=== PATIENT | male | born 1970 | race American Indian/Alaskan Native ===

== ENCOUNTER 2019-01-15 12:11 | Emergency (ER) | payer SELFPAY ==
--- NOTE | 2019-01-15 12:25 | Emergency Department Report ---
Chief Complaint: Nausea/Vomiting/Diarrhea Stated Complaint: STOMACH PAIN/VOMIT Time Seen by Provider: 01/15/19 12:20 - HPI History of Present Illness: Pt presents with left upper abd pain 3-4 days N/V able to tolerate water no fever no diarrhea had a BM last night hx of RA, gastritis, EGD/Colonoscopy a couple of months ago + smoker + marijuana MSE screening note: Focused history and physical exam performed. Due to findings the following was ordered: UA, CBC, CMP, lipase ED Disposition for MSE Condition: Stable
[2019-01-15] MEDS ORDERED: ZOFRAN ODT PO ONE (12:26)
[2019-01-15] MEDS ORDERED: ZOFRAN IV ONE (12:44)
[2019-01-15] MEDS ORDERED: NACL 0.9% 1000 ML 1,000 ML IV ONE ×2 (12:44→14:23)
[2019-01-15] MEDS ORDERED: BENTYL IM ONE (12:44)
[2019-01-15] MEDS ORDERED: PEPCID IV ONE (12:44)
[2019-01-15] MEDS ORDERED: GEODON IM ONE (12:45)
[2019-01-15 12:54] LABS: Basophils # (Auto) 0.1 K/mm3 (0.0-0.1); Basophils % (Auto) 0.9 % (0.0-1.8); Eosinophils % (Auto) 0.1 % (0.0-4.3); Hematocrit 41.2 % (35.5-45.6); Hemoglobin 13.8 gm/dl (11.8-15.2); Lymphocytes # (Auto) 1.2 K/mm3 (1.2-5.4); Lymphocytes % (Auto) 13.5 % (13.4-35.0); Mean Corpuscular HGB Conc 33 % (32-34); Mean Corpuscular Volume 90 fl (84-94); Monocytes # (Auto) 0.3 K/mm3 (0.0-0.8); Monocytes % (Auto) 3.8 % (0.0-7.3); Platelet Count 323 K/mm3 (140-440)
[2019-01-15 13:21] LABS: Alanine Aminotransferase 8 units/L (7-56); BUN/Creatinine Ratio 36; Blood Urea Nitrogen 25 mg/dL (9-20); Calcium 9.9 mg/dL (8.4-10.2); Hemolysis Index 11
[2019-01-15] MEDS ORDERED: WATER FOR INJ (PF) ONE (13:22)
[2019-01-15] MEDS ORDERED: WATER FOR INJ (PF) IV ONE (13:23)
[2019-01-15] MEDS ORDERED: WATER FOR INJ (PF) IM ONE (13:36)
--- NOTE | 2019-01-15 15:25 | Emergency Department Report ---
Vomiting/Diarrhea - HPI Chief Complaint: Nausea/Vomiting/Diarrhea Stated Complaint: STOMACH PAIN/VOMIT Time Seen by Provider: 01/15/19 12:20 Duration: 3 Days Severity: moderate Nausea/Vomiting Severity: Moderate Diarrhea Severity: None Pain Location: Epigastric Pain Severity: Moderate Symptoms: No Watery Diarrhea, No Bloody diarrhea, No Fever, No Able to Tolerate Fluids, No Recent Unusual Foods, No Recent Untreated Water Other History: Patient has a history of gastroparesis and states that his symptoms are similar to previous episodes ED Review of Systems ROS: Stated complaint: STOMACH PAIN/VOMIT Other details as noted in HPI Comment: All other systems reviewed and negative ED Past Medical Hx - Past Medical History Previous Medical History?: Yes Hx Arthritis: Yes - Surgical History Past Surgical History?: No - Social History Smoking Status: Current Every Day Smoker Substance Use Type: Marijuana - Medications Home Medications: Home Medications Medication Instructions Recorded Confirmed Last Taken Type Dicyclomine [Bentyl] 20 mg PO QID #12 tablet 01/15/19 Unknown Rx Ondansetron [Zofran Odt] 4 mg PO Q8HR PRN #10 tab.rapdis 01/15/19 Unknown Rx Vomiting Diarrhea Exam - Exam General: Vital signs noted. No distress. Alert and acting appropriately. HEENT: Yes Moist Mucous Membranes, No Pharyngeal Erythema, No Pharyngeal Exudates, No Rhinorrhea, No Conjuctival Injection, No Frontal Tenderness, No Maxillary Tenderness Neck: No Adenopathy, No Rigidity Lungs: Yes Clear Lung Sounds, Yes Good Air Exchange, No Wheezes, No Stridor, No Cough, No Nasal Flaring, No Retractions, No Use of Accessory Muscles Heart exam: Regular: Yes, Murmur: No, Tachycardia: No Abdomen: Tenderness: No, Peritoneal Signs: No, Distention: No, Hyperactive Bowel sounds: No Skin exam: Rash: No, Edema: No, Normal turgor: Yes Neurologic: Alert and oriented, no deficits. Musculoskeletal: Unremarkable. ED Course Vital Signs 01/15/19 12:22 Temperature 97.5 F L Pulse Rate 60 Respiratory 20 Rate Blood Pressure 133/94 O2 Sat by Pulse 100 Oximetry ED Medical Decision Making - Lab Data Result diagrams: 01/15/19 12:46 01/15/19 12:46 - Medical Decision Making Patient was given multiple medications for nausea and IV fluids. Patient's symptoms have improved. Critical care attestation.: If time is entered above; I have spent that time in minutes in the direct care of this critically ill patient, excluding procedure time. ED Disposition Clinical Impression: Gastroparesis Disposition: DC-01 TO HOME OR SELFCARE Is pt being admited?: No Does the pt Need Aspirin: No Condition: Stable Referrals: JOHN VERMA MD [Staff Physician] - 3-5 Days Time of Disposition: 15:25
[2019-01-15 15:43] VITALS: BP 142/93
== END 2019-01-15 15:52 | disposition home or self-care (01) ==
LOC: ED 12:11
DX: K31.84 Gastroparesis (principal); M19.90 Unspecified osteoarthritis, unspecified site; F17.200 Nicotine dependence, unspecified, uncomplicated; F12.10 Cannabis abuse, uncomplicated
CPT/HCPCS: 36415; 80053; 83690; 85025; 96361; 96372; 96374; 96375; 99283; J0500; J2405; J3486; J7030

== ENCOUNTER 2022-04-08 14:08 | Inpatient (IN) | payer MEDICAID ==
[2022-04-08] MEDS ORDERED: MORPHINE 4 MG/1 ML INJ IV ONE (14:19)
[2022-04-08] MEDS ORDERED: SODIUM CHLORIDE 0.9% 1000 ML 1,000 ML IV ONE ×2 (14:19→17:03)
[2022-04-08] MEDS ORDERED: ONDANSETRON 4 MG/2 ML INJ IV ONE (14:19)
[2022-04-08] MEDS ORDERED: PANTOPRAZOLE 40 MG INJ IV ONE (14:19)
[2022-04-08] MEDS ORDERED: METOCLOPRAMIDE 10 MG/2 ML INJ IV ONE (14:19)
[2022-04-08] MEDS ORDERED: diphenhydrAMINE 50 MG/ML VIAL IV ONE (14:20)
--- NOTE | 2022-04-08 14:24 | Emergency Department Report ---
ED Abdominal Pain HPI - General Chief Complaint: Abdominal Pain Stated Complaint: VOMITING Time Seen by Provider: 04/08/22 14:13 Source: patient, EMS Mode of arrival: Stretcher Limitations: No Limitations - History of Present Illness Initial Comments: Patient is 52 years old male with history of gastroparesis. Patient presented to the ER complaining of diffuse abdominal pain associated with nausea and vomiting for the last few days getting worse today. Patient denied any fever or chills. No chest pain or shortness of breath. MD Complaint: abdominal pain -: days(s) Location: diffuse Radiation: none Associated Symptoms: nausea, vomiting - Related Data Previous Rx's Medication Instructions Recorded Last Taken Type Dicyclomine [Bentyl] 20 mg PO QID #12 tablet 01/15/19 Unknown Rx Ondansetron [Zofran Odt] 4 mg PO Q8HR PRN #10 tab.rapdis 01/15/19 Unknown Rx Allergies Allergy/AdvReac Type Severity Reaction Status Date / Time No Known Allergies Allergy Verified 04/08/22 14:12 ED Review of Systems ROS: Stated complaint: VOMITING Other details as noted in HPI Comment: All other systems reviewed and negative Constitutional: denies: chills, fever Respiratory: denies: cough, shortness of breath, SOB with exertion, SOB at rest Cardiovascular: denies: chest pain, palpitations Gastrointestinal: abdominal pain, nausea, vomiting. denies: diarrhea, constipation, hematemesis, melena, hematochezia Musculoskeletal: denies: back pain Neurological: denies: headache, weakness, numbness, paresthesias, confusion Psychiatric: denies: depression, auditory hallucinations, visual hallucinations, homicidal thoughts, suicidal thoughts ED Past Medical Hx - Past Medical History Hx Arthritis: Yes - Social History Smoking Status: Current Every Day Smoker Substance Use Type: Marijuana - Medications Home Medications: Home Medications Medication Instructions Recorded Confirmed Last Taken Type Dicyclomine [Bentyl] 20 mg PO QID #12 tablet 01/15/19 Unknown Rx Ondansetron [Zofran Odt] 4 mg PO Q8HR PRN #10 tab.rapdis 01/15/19 Unknown Rx ED Physical Exam - General Limitations: No Limitations General appearance: alert, in no apparent distress - Head Head exam: Present: atraumatic, normocephalic, normal inspection - Eye Eye exam: Present: normal appearance - ENT ENT exam: Present: mucous membranes dry - Neck Neck exam: Present: normal inspection, full ROM. Absent: tenderness, meningismus - Respiratory Respiratory exam: Present: normal lung sounds bilaterally - Cardiovascular Cardiovascular Exam: Present: bradycardia - GI/Abdominal GI/Abdominal exam: Present: soft, tenderness, rebound, normal bowel sounds. Absent: distended, guarding, rigid, organomegaly, mass, bruit, pulsatile mass, hernia - Extremities Exam Extremities exam: Present: normal inspection, full ROM, normal capillary refill. Absent: tenderness - Back Exam Back exam: Present: normal inspection, full ROM. Absent: CVA tenderness (R), CVA tenderness (L) - Neurological Exam Neurological exam: Present: alert, oriented X3, CN II-XII intact, normal gait, reflexes normal. Absent: motor sensory deficit - Psychiatric Psychiatric exam: Absent: homicidal ideation, suicidal ideation - Skin Skin exam: Present: warm, intact, normal color ED Course Vital Signs 04/08/22 14:09 Temperature 97.8 F Pulse Rate 48 L Respiratory 20 Rate Blood Pressure 164/98 [Left] O2 Sat by Pulse 99 Oximetry ED Medical Decision Making - Lab Data Result diagrams: 04/08/22 14:46 04/08/22 14:46 - Radiology Data Radiology results: report reviewed - Medical Decision Making Patient is 52 years old male with history of gastroparesis. Patient presented to the ER complaining of diffuse abdominal pain associated with nausea and vomiting for the last few days getting worse today. Patient denied any fever or chills. No chest pain or shortness of breath. Patient received normal saline, Reglan, Zofran and Benadryl. Patient stated that her symptom is better no more vomiting. Labs reviewed and is unremarkable. CT abdomen and pelvis with IV contrast showed acute appendicitis. I discussed the patient with Dr. Travis, surgeon on-call he advised admit the patient to the hospital and he will see the patient. I discussed the patient with Dr. Grullon, he agreed to admit the patient to the hospital for further management. Critical care attestation.: If time is entered above; I have spent that time in minutes in the direct care of this critically ill patient, excluding procedure time. ED Disposition Clinical Impression: Acute appendicitis, Acute nausea with nonbilious vomiting Disposition: ADMITTED INPATIENT Is pt being admited?: Yes Condition: Stable
[2022-04-08 15:10] LABS: Basophils % (Auto) 0.6 % (0.0-1.8); Eosinophils % (Auto) 0.3 % (0.0-4.3); Hematocrit 40.7 % (35.5-45.6); Hemoglobin 13.7 gm/dl (11.8-15.2); Lymphocytes # (Auto) 1.1 K/mm3 (1.2-5.4); Lymphocytes % (Auto) 14.6 % (13.4-35.0); Mean Corpuscular HGB Conc 34 % (32-34); Mean Corpuscular Volume 91 fl (84-94); Monocytes # (Auto) 0.3 K/mm3 (0.0-0.8); Monocytes % (Auto) 3.8 % (0.0-7.3); Platelet Count 206 K/mm3 (140-440); Red Blood Count 4.48 M/mm3 (3.65-5.03); Red Cell Distribution Width 13.9 % (13.2-15.2)
[2022-04-08 15:38] LABS: Alanine Aminotransferase 10 units/L (7-56); Albumin 3.9 g/dL (3.9-5); BUN/Creatinine Ratio 27; Blood Urea Nitrogen 27 mg/dL (9-20); Calcium 9.3 mg/dL (8.4-10.2); Hemolysis Index 7
[2022-04-08 16:01] LABS: Bilirubin,Direct < 0.2 mg/dL (0-0.2)
--- NOTE | 2022-04-08 16:48 | Cat Scan Report ---
CT ABDOMEN AND PELVIS WITH CONTRAST HISTORY: abdominal pain. COMPARISON: None. TECHNIQUE: CT images of the abdomen and pelvis were obtained following administration of intravenous contrast. All CT scans at this location are performed using CT dose reduction for ALARA by means of automated exposure control. CONTRAST: 100 ml of intravenous contrast administered. FINDINGS: Lungs/bones: Moderate emphysema with small partially loculated pleural effusion on the left. Degener ative changes in the spine and pelvis with nothing acute. Abdomen/pelvis: There is hepatic steatosis. Liver is otherwise unremarkable. The spleen, pancreas, a drenals, and proximal GI tract appear unremarkable. There is a 1 mm nonobstructive calyceal stone in the lower pole of the right kidney. Tiny simple cysts in the left kidney. Urinary bladder is unremarkable. Prostate is mildly enlarged and indents the bladder base. No pelvic free fluid. There is colonic diverticulosis with no gross acute inflammatory change identified. There is a dilated fluid-filled tubular structure in the right lower quadrant measuring 15 mm in maximal d imension felt to represent the appendix. IMPRESSION: 1. Right lower quadrant findings as above suggesting acute appendicitis. 2. Additional incidental findings as above. Signer Name: Conrado Grover MD Signed: 04/08/2022 4:43 PM Workstation Name: [id number]
[2022-04-08] MEDS ORDERED: PIPERACILLIN/TAZOBACTAM 3.375 3.375 GM/50 ML BAG IV ONE (17:03)
--- NOTE | 2022-04-08 20:31 | Consultation ---
History of Present Illness Consult date: 04/08/22 Reason for consult: abdominal pain - History of present illness History of present illness: 52 yo male with 2 day h/o RLQ pain, nausea & vomiting. Past History Past Medical History: No medical history Medications and Allergies Allergies Allergy/AdvReac Type Severity Reaction Status Date / Time No Known Allergies Allergy Verified 04/08/22 14:12 Home Medications Medication Instructions Recorded Confirmed Last Taken Type Dicyclomine [Bentyl] 20 mg PO QID #12 tablet 01/15/19 04/09/22 Unknown Rx Ondansetron [Zofran Odt] 4 mg PO Q8HR PRN #10 tab.rapdis 01/15/19 04/09/22 Unknown Rx Review of Systems All systems: negative (none) Exam Vital Signs Temp Pulse Resp BP Pulse Ox 97.8 F 48 L 20 164/98 99 04/08/22 14:09 04/08/22 14:09 04/08/22 14:09 04/08/22 14:09 04/08/22 14:09 - General physical appearance Positive: well developed, well nourished, no distress - Eyes Positive: PERRL, normal occular movement - ENT Positive: normal pinna, normal nares, normal mucosa, no hearing loss, no congestion - Neck Positive: no masses, no bruits, trachea midline, no venous distension - Respiratory Positive: normal expansion, normal respiratory effort, clear to auscultation - Cardiovascular Rhythm: regular Heart Sounds: Present: S1 & S2. Absent: rub, click - Extremities Extremities: no ischemia, pulses symmetrical, No edema - Breasts Breasts: normal, no mass, no skin changes - Abdomen Abdomen: Present: soft, tender (Mildly TTP in the RLQ.), bowel sounds normal. Absent: distended, rebound, guarding, rigid Hernia: none - Genitourinary Male Genitourinary: normal Female Genitourinary: normal - Integumentary no rash, no growths, no abnormal pigmentation - Neurologic Neurologic: alert and oriented to time, place and person, motor strength and sensation are grossly intact - Musculoskeletal normal gait, normal posture - Psychiatric Psychiatric: appropriate mood/affect, intact judgment & insight Results - Labs 04/09/22 04:50 04/09/22 04:50 Abnormal lab results 04/08/22 04/08/22 Range/Units 14:46 14:46 Lymph # (Auto) 1.1 L (1.2-5.4) K/mm3 Seg Neutrophils % 80.7 H (40.0-70.0) % BUN 27 H (9-20) mg/dL Total Protein 8.3 H (6.3-8.2) g/dL Diabetes panel 04/08/22 Range/Units 14:46 Sodium 139 (137-145) mmol/L Potassium 3.9 (3.6-5.0) mmol/L Chloride 98.8 (98-107) mmol/L Carbon Dioxide 28 (22-30) mmol/L BUN 27 H (9-20) mg/dL Creatinine 1.0 (0.8-1.3) mg/dL Glucose 83 (75-100) mg/dL Calcium 9.3 (8.4-10.2) mg/dL AST 15 (5-40) units/L ALT 10 (7-56) units/L Alkaline Phosphatase 76 (35-129) units/L Total Protein 8.3 H (6.3-8.2) g/dL Albumin 3.9 (3.9-5) g/dL Calcium panel 04/08/22 Range/Units 14:46 Calcium 9.3 (8.4-10.2) mg/dL Albumin 3.9 (3.9-5) g/dL Pituitary panel 04/08/22 Range/Units 14:46 Sodium 139 (137-145) mmol/L Potassium 3.9 (3.6-5.0) mmol/L Chloride 98.8 (98-107) mmol/L Carbon Dioxide 28 (22-30) mmol/L BUN 27 H (9-20) mg/dL Creatinine 1.0 (0.8-1.3) mg/dL Glucose 83 (75-100) mg/dL Calcium 9.3 (8.4-10.2) mg/dL Adrenal panel 04/08/22 Range/Units 14:46 Sodium 139 (137-145) mmol/L Potassium 3.9 (3.6-5.0) mmol/L Chloride 98.8 (98-107) mmol/L Carbon Dioxide 28 (22-30) mmol/L BUN 27 H (9-20) mg/dL Creatinine 1.0 (0.8-1.3) mg/dL Glucose 83 (75-100) mg/dL Calcium 9.3 (8.4-10.2) mg/dL Total Bilirubin 0.20 (0.1-1.2) mg/dL AST 15 (5-40) units/L ALT 10 (7-56) units/L Alkaline Phosphatase 76 (35-129) units/L Total Protein 8.3 H (6.3-8.2) g/dL Albumin 3.9 (3.9-5) g/dL - Imaging CT scan - abdomen: report reviewed CT scan - pelvis: report reviewed Assessment and Plan - Patient Problems (1) Acute appendicitis Current Visit: Yes Status: Acute Plan to address problem: 1) IV Zosyn 2) NPO 3) Lap appy tomorrow
[2022-04-08] MEDS ORDERED: PIPERACILLIN/TAZOBACTAM 3.375 3.375 GM/50 ML BAG IV SCH (21:00)
[2022-04-08] MEDS ORDERED: METOCLOPRAMIDE 10 MG/2 ML INJ IV PRN (21:47)
[2022-04-08] MEDS ORDERED: ACETAMINOPHEN 325 MG TAB PO PRN (21:47)
[2022-04-08] MEDS ORDERED: HYDROmorphone 0.5 MG/0.5 ML INJ IV PRN (21:47)
[2022-04-08] MEDS ORDERED: MORPHINE 2 MG/1 ML INJ IV PRN (21:47)
[2022-04-08] MEDS ORDERED: ONDANSETRON 4 MG/2 ML INJ IV PRN (21:47)
--- NOTE | 2022-04-08 21:51 | History and Physical Report ---
History of Present Illness Date of examination: 04/08/22 Date of admission: 04/08/2022 Chief complaint: Right lower quadrant pain for 2 days History of present illness: 52-year-old male with no significant past medical history comes in for right lower quadrant pain 2 days duration associated with nausea and vomiting. No fever or chills. Vomited about 3-4 times every day. Pain is about 8 on a scale of 1-10. No exacerbating factors or relieving - Past Medical History --Arthritis: Yes - Social History --Smoking Status: Current Every Day Smoker --Substance Use Type: Marijuana - Medications --Home Medications: Home Medications Medication Instructions Recorded Confirmed Last Taken Type Dicyclomine [Bentyl] 20 mg PO QID #12 tablet 01/15/19 Unknown Rx Ondansetron [Zofran Odt] 4 mg PO Q8HR PRN #10 tab.rapdis 01/15/19 Unknown Rx Review of Systems ROS: Stated complaint: VOMITING Other details as noted in HPI Comment: All other systems reviewed and negative Constitutional: denies: chills, fever Respiratory: denies: cough, shortness of breath, SOB with exertion, SOB at rest Cardiovascular: denies: chest pain, palpitations Gastrointestinal: abdominal pain, nausea, vomiting. denies: diarrhea, constipation, hematemesis, melena, hematochezia Musculoskeletal: denies: back pain Neurological: denies: headache, weakness, numbness, paresthesias, confusion Psychiatric: denies: depression, auditory hallucinations, visual hallucinations, homicidal thoughts, suicidal thoughts Medications and Allergies Allergies Allergy/AdvReac Type Severity Reaction Status Date / Time No Known Allergies Allergy Verified 04/08/22 14:12 Home Medications Medication Instructions Recorded Confirmed Last Taken Type Dicyclomine [Bentyl] 20 mg PO QID #12 tablet 01/15/19 04/09/22 Unknown Rx Ondansetron [Zofran Odt] 4 mg PO Q8HR PRN #10 tab.rapdis 01/15/19 04/09/22 Unknown Rx Active Meds: Active Medications Piperacillin Sod/Tazobactam Sod (Zosyn/Ns 3.375gm/50ml) 3.375 gm in 50 mls @ 100 mls/hr IV Q8H OMA; Protocol Exam - Constitutional Vitals: Temp Pulse Resp BP Pulse Ox 97.8 F 49 L 16 168/89 99 04/08/22 14:09 04/08/22 18:53 04/08/22 18:53 04/08/22 18:53 04/08/22 18:53 General appearance: Present: no acute distress, well-nourished - EENT Eyes: Present: PERRL ENT: hearing intact, clear oral mucosa - Neck Neck: Present: supple, normal ROM - Respiratory Respiratory effort: normal Respiratory: bilateral: CTA - Cardiovascular Heart rate: 78 Rhythm: regular Heart Sounds: Present: S1 & S2. Absent: rub, click - Extremities Extremities: no ischemia, pulses intact, pulses symmetrical, No edema Peripheral Pulses: within normal limits - Abdominal General gastrointestinal: Present: soft, tender, normal bowel sounds Localized gastrointestinal: tender: RLQ, guarding: RLQ, rebound: RLQ Male genitourinary: Present: normal - Integumentary Integumentary: Present: clear, warm, dry - Musculoskeletal Musculoskeletal: gait normal, strength equal bilaterally - Psychiatric Psychiatric: appropriate mood/affect, intact judgment & insight - Neurologic Neurologic: CNII-XII intact, moves all extremities Results - Labs CBC & Chem 7: 04/09/22 04:50 04/09/22 04:50 Labs: Laboratory Last Values WBC 7.3 K/mm3 (4.5-11.0) 04/08/22 14:46 RBC 4.48 M/mm3 (3.65-5.03) 04/08/22 14:46 Hgb 13.7 gm/dl (11.8-15.2) 04/08/22 14:46 Hct 40.7 % (35.5-45.6) 04/08/22 14:46 MCV 91 fl (84-94) 04/08/22 14:46 MCH 31 pg (28-32) 04/08/22 14:46 MCHC 34 % (32-34) 04/08/22 14:46 RDW 13.9 % (13.2-15.2) 04/08/22 14:46 Plt Count 206 K/mm3 (140-440) 04/08/22 14:46 Lymph % (Auto) 14.6 % (13.4-35.0) 04/08/22 14:46 [place] % (Auto) 3.8 % (0.0-7.3) 04/08/22 14:46 Eos % (Auto) 0.3 % (0.0-4.3) 04/08/22 14:46 Baso % (Auto) 0.6 % (0.0-1.8) 04/08/22 14:46 Lymph # (Auto) 1.1 K/mm3 (1.2-5.4) L 04/08/22 14:46 [place] # (Auto) 0.3 K/mm3 (0.0-0.8) 04/08/22 14:46 Eos # (Auto) 0.0 K/mm3 (0.0-0.4) 04/08/22 14:46 Baso # (Auto) 0.0 K/mm3 (0.0-0.1) 04/08/22 14:46 Seg Neutrophils % 80.7 % (40.0-70.0) H 04/08/22 14:46 Seg Neutrophils # 5.9 K/mm3 (1.8-7.7) 04/08/22 14:46 Sodium 139 mmol/L (137-145) 04/08/22 14:46 Potassium 3.9 mmol/L (3.6-5.0) 04/08/22 14:46 Chloride 98.8 mmol/L (98-107) 04/08/22 14:46 Carbon Dioxide 28 mmol/L (22-30) 04/08/22 14:46 Anion Gap 16 mmol/L 04/08/22 14:46 BUN 27 mg/dL (9-20) H 04/08/22 14:46 Creatinine 1.0 mg/dL (0.8-1.3) 04/08/22 14:46 Estimated GFR > 60 ml/min 04/08/22 14:46 BUN/Creatinine Ratio 27 % 04/08/22 14:46 Glucose 83 mg/dL (75-100) 04/08/22 14:46 Calcium 9.3 mg/dL (8.4-10.2) 04/08/22 14:46 Total Bilirubin 0.20 mg/dL (0.1-1.2) 04/08/22 14:46 Direct Bilirubin < 0.2 mg/dL (0-0.2) 04/08/22 14:46 Indirect Bilirubin 0.0 mg/dL 04/08/22 14:46 AST 15 units/L (5-40) 04/08/22 14:46 ALT 10 units/L (7-56) 04/08/22 14:46 Alkaline Phosphatase 76 units/L (35-129) 04/08/22 14:46 Total Protein 8.3 g/dL (6.3-8.2) H 04/08/22 14:46 Albumin 3.9 g/dL (3.9-5) 04/08/22 14:46 Albumin/Globulin Ratio 0.9 % 04/08/22 14:46 Lipase 59 units/L (13-60) 04/08/22 14:46 - Imaging and Cardiology Imaging and Cardiology: CT of the abdomen Right lower quadrant findings as above suggesting appendicitis 87 Assessment and Plan Advance Directives: Yes (Full code) VTE prophylaxis?: Chemical Plan of care discussed with patient/family: Yes - Patient Problems (1) Acute appendicitis Current Visit: Yes Status: Acute Plan to address problem: Patient initiated on IV Zosyn IV fluids Pain control Surgery consult (2) Acute dehydration Current Visit: Yes Status: Acute Plan to address problem: Secondary to nausea and vomiting IV fluids for now (3) DVT prophylaxis Current Visit: Yes Status: Acute Plan to address problem: On SCDs and GI prophylaxis (4) Advance care planning Current Visit: Yes Status: Acute Plan to address problem: Disease education conducted care plan discussed, diagnosis discussed, prognosis discussed. Patient is full code. Patient acknowledged understanding and agreement with care plan +30 minutes..
[2022-04-08] MEDS ORDERED: D5W/0.9% NACL 1,000 ML IV SCH (22:00)
[2022-04-09] MEDS: HEPARIN 5,000 UNIT/1 ML VIAL SUB-Q SCH ×3 (00:56→21:09)
[2022-04-09] MEDS: PIPERACIL/TAZOBACTA 4.5/NS 100 4.5 GM/100 ML VIAL IV SCH ×3 (01:44→17:00)
[2022-04-09 02:08] LABS: Bilirubin,Urine NEG (Negative); Blood,Urine NEG (Negative); Color,Urine Yellow (Yellow); Protein,Urine <15 mg/dL mg/dL (Negative); Urobilinogen,Urine < 2.0 mg/dL (<2.0)
[2022-04-09 05:41] LABS: Basophils # (Auto) 0.1 K/mm3 (0.0-0.1); Basophils % (Auto) 1.3 % (0.0-1.8); Eosinophils % (Auto) 0.4 % (0.0-4.3); Hematocrit 36.9 % (35.5-45.6); Lymphocytes # (Auto) 1.8 K/mm3 (1.2-5.4); Lymphocytes % (Auto) 25.5 % (13.4-35.0); Mean Corpuscular HGB Conc 33 % (32-34); Mean Corpuscular Volume 92 fl (84-94); Monocytes # (Auto) 0.4 K/mm3 (0.0-0.8); Monocytes % (Auto) 6.2 % (0.0-7.3); Platelet Count 190 K/mm3 (140-440); Red Blood Count 4.01 M/mm3 (3.65-5.03); Red Cell Distribution Width 14.1 % (13.2-15.2)
[2022-04-09 06:08] LABS: Alanine Aminotransferase 6 units/L (7-56); Albumin 3.5 g/dL (3.9-5); BUN/Creatinine Ratio 20; Blood Urea Nitrogen 18 mg/dL (9-20); Calcium 8.9 mg/dL (8.4-10.2); Hemolysis Index 5
--- NOTE | 2022-04-09 10:59 | Anesthesia Consultation ---
Anesthesia Consult and Med Hx Date of service: 04/09/22 - Airway Anesthetic Teeth Evaluation: Poor (some missing teeth) ROM Head & Neck: Adequate Mental/Hyoid Distance: Adequate Mallampati Class: Class II Intubation Access Assessment: Probably Good - Pre-Operative Health Status ASA Pre-Surgery Classification: ASA2 Proposed Anesthetic Plan: General - Pulmonary Hx Smoking: Yes (4-5 cigs/day, marijuana) Hx Pneumonia: No - Gastrointestinal Hx Gastroesophageal Reflux Disease: Yes - Other Systems Hx Substance Use: Yes (marijuana) - Additional Comments Anesthesia Medical History Comments: acute appendicitis
--- NOTE | 2022-04-09 11:00 | Anesthesia Day of Surgery ---
Anesthesia Day of Surgery - Day of Surgery Patient Examined: Yes Patient H&P Reviewed: Yes Patient is NPO: Yes
[2022-04-09] MEDS ORDERED: HYDROmorphone 1 MG/1 ML INJ ONE (13:43)
[2022-04-09] MEDS ORDERED: LIDOCAINE MPF (2%) 20 MG/1 ML VIAL 5 ML ONE (13:43)
[2022-04-09] MEDS ORDERED: propofoL 200 MG/20 ML VIAL IV ONE (13:43)
[2022-04-09] MEDS ORDERED: BUPIVACAINE-EPINEPHRINE/PF 0.25%-1:200,000 (30 ML) VIAL INFILTRATI ONE ×2 (13:54→15:04)
[2022-04-09] MEDS ORDERED: HYDROmorphone 0.5 MG/0.5 ML INJ IV PRN (14:07)
[2022-04-09] MEDS ORDERED: ONDANSETRON 4 MG/2 ML INJ IV PRN (14:07)
--- NOTE | 2022-04-09 14:59 | Progress Note ---
Assessment and Plan Assessment and plan: #Acute appendicitis -CT abdomen/pelvis suggestive of acute appendicitis -continue zosyn, IV fluids & PRN pain control -Surgery consulted, plan for lap appy today #Volume depletion -secondary to nausea and vomiting -continue IV fluids #Advanced care planning -Disease education conducted care plan discussed, diagnosis discussed, prognosis discussed. Patient is full code. Patient acknowledged understanding and agreement with care plan +30 minutes. History Interval history: No acute events overnight. Patient denies current pain, nausea or vomiting. Patient eager to leave after procedure due to personal reasons. Counseled patient on risks of leaving prematurely. Hospitalist Physical - Physical exam Narrative exam: GENERAL: Thin male. In no acute distress. HEENT: Normocephalic. Atraumatic. NECK: Supple. CHEST/LUNGS: CTAB on room air HEART/CARDIOVASCULAR: RRR. No murmur, rubs or gallops appreciated. ABDOMEN: +BS. NT/ND. SKIN: No rashes noted. NEURO: No focal motor deficit. Follows all commands. MUSCULOSKELETAL: No joint effusion EXTREMITIES: No cyanosis, clubbing or edema. PSYCH: Cooperative. - Constitutional Vitals: Temp Pulse Resp BP Pulse Ox 98.3 F 47 L 18 124/87 96 04/09/22 12:00 04/09/22 12:00 04/09/22 12:00 04/09/22 12:00 04/09/22 12:00 General appearance: Present: no acute distress, well-nourished Results - Labs CBC & Chem 7: 04/09/22 04:50 04/09/22 04:50 Labs: Laboratory Last Values WBC 7.3 K/mm3 (4.5-11.0) 04/09/22 04:50 RBC 4.01 M/mm3 (3.65-5.03) 04/09/22 04:50 Hgb 12.0 gm/dl (11.8-15.2) 04/09/22 04:50 Hct 36.9 % (35.5-45.6) 04/09/22 04:50 MCV 92 fl (84-94) 04/09/22 04:50 MCH 30 pg (28-32) 04/09/22 04:50 MCHC 33 % (32-34) 04/09/22 04:50 RDW 14.1 % (13.2-15.2) 04/09/22 04:50 Plt Count 190 K/mm3 (140-440) 04/09/22 04:50 Lymph % (Auto) 25.5 % (13.4-35.0) 04/09/22 04:50 Love % (Auto) 6.2 % (0.0-7.3) 04/09/22 04:50 Eos % (Auto) 0.4 % (0.0-4.3) 04/09/22 04:50 Baso % (Auto) 1.3 % (0.0-1.8) 04/09/22 04:50 Lymph # (Auto) 1.8 K/mm3 (1.2-5.4) 04/09/22 04:50 Love # (Auto) 0.4 K/mm3 (0.0-0.8) 04/09/22 04:50 Eos # (Auto) 0.0 K/mm3 (0.0-0.4) 04/09/22 04:50 Baso # (Auto) 0.1 K/mm3 (0.0-0.1) 04/09/22 04:50 Seg Neutrophils % 66.6 % (40.0-70.0) 04/09/22 04:50 Seg Neutrophils # 4.8 K/mm3 (1.8-7.7) 04/09/22 04:50 Sodium 140 mmol/L (137-145) 04/09/22 04:50 Potassium 4.0 mmol/L (3.6-5.0) 04/09/22 04:50 Chloride 106.0 mmol/L (98-107) 04/09/22 04:50 Carbon Dioxide 24 mmol/L (22-30) 04/09/22 04:50 Anion Gap 14 mmol/L 04/09/22 04:50 BUN 18 mg/dL (9-20) 04/09/22 04:50 Creatinine 0.9 mg/dL (0.8-1.3) 04/09/22 04:50 Estimated GFR > 60 ml/min 04/09/22 04:50 BUN/Creatinine Ratio 20 % 04/09/22 04:50 Glucose 93 mg/dL (75-100) 04/09/22 04:50 Calcium 8.9 mg/dL (8.4-10.2) 04/09/22 04:50 Total Bilirubin 0.50 mg/dL (0.1-1.2) 04/09/22 04:50 Direct Bilirubin < 0.2 mg/dL (0-0.2) 04/08/22 14:46 Indirect Bilirubin 0.0 mg/dL 04/08/22 14:46 AST 14 units/L (5-40) 04/09/22 04:50 ALT 6 units/L (7-56) L 04/09/22 04:50 Alkaline Phosphatase 68 units/L (35-129) 04/09/22 04:50 Total Protein 7.4 g/dL (6.3-8.2) 04/09/22 04:50 Albumin 3.5 g/dL (3.9-5) L 04/09/22 04:50 Albumin/Globulin Ratio 0.9 % 04/09/22 04:50 Lipase 59 units/L (13-60) 04/08/22 14:46 Urine Color Yellow (Yellow) 04/08/22 20:00 Urine Turbidity Clear (Clear) 04/08/22 20:00 Urine pH 7.0 (5.0-7.0) 04/08/22 20:00 Ur Specific [place] 1.045 (1.003-1.030) H 04/08/22 20:00 Urine Protein <15 mg/dl mg/dL (Negative) 04/08/22 20:00 Urine Glucose (UA) Neg mg/dL (Negative) 04/08/22 20:00 Urine Ketones 80 mg/dL (Negative) 04/08/22 20:00 Urine Blood Neg (Negative) 04/08/22 20:00 Urine Nitrite Neg (Negative) 04/08/22 20:00 Urine Bilirubin Neg (Negative) 04/08/22 20:00 Urine Urobilinogen < 2.0 mg/dL (<2.0) 04/08/22 20:00 Ur Leukocyte Esterase Neg (Negative) 04/08/22 20:00 Urine WBC (Auto) 1.0 /HPF (0.0-6.0) 04/08/22 20:00 Urine RBC (Auto) 4.0 /HPF (0.0-6.0) 04/08/22 20:00 U Epithel Cells (Auto) < 1.0 /HPF (0-13.0) 04/08/22 20:00 Microbiology: Microbiology 04/08/22 17:14 Peripheral/Venous Blood Culture - Preliminary Culture in Progress 04/08/22 17:14 Peripheral/Venous Blood Culture - Preliminary Culture in Progress Murillo/IV: Voiding Method Bedside Commode Active Medications - Current Medications Current Medications: Generic Name Dose Route Start Last Admin Trade Name Freq PRN Reason Stop Dose Admin Acetaminophen 650 mg 04/08/22 21:47 Acetaminophen 325 Mg Tab PO Q4H PRN Pain MILD(1-3)/Fever >100.5/[place] Heparin Sodium (Porcine) 5,000 unit 04/08/22 22:00 04/09/22 00:56 Heparin 5,000 Unit/1 Ml Vial SUB-Q 5,000 unit Q12HR OMA Administration Hydromorphone HCl 1 mg 04/08/22 21:47 04/09/22 01:50 Hydromorphone 0.5 Mg/0.5 Ml Inj IV 1 mg Q3H PRN Administration Pain , Severe (7-10) Hydromorphone HCl 0.5 mg 04/09/22 14:07 Hydromorphone 0.5 Mg/0.5 Ml Inj IV Q10MIN PRN Pain , Severe (7-10) Dextrose/Sodium Chloride 1,000 mls @ 125 mls/hr 04/08/22 22:00 04/09/22 01:44 D5ns IV 125 mls/hr DIRECT OMA Administration Piperacillin Sod/Tazobactam Sod 4.5 gm in 100 mls @ 200 mls/hr 04/09/22 01:00 04/09/22 01:44 Zosyn/Ns 4.5gm/100ml IV 200 mls/hr Q8H OMA Administration Protocol Metoclopramide HCl 10 mg 04/08/22 21:47 Metoclopramide 10 Mg/2 Ml Inj IV Q6H PRN Nausea And Vomiting Morphine Sulfate 2 mg 04/08/22 21:47 Morphine 2 Mg/1 Ml Inj IV Q4H PRN Pain, Moderate (4-6) Ondansetron HCl 4 mg 04/08/22 21:47 04/09/22 01:50 Ondansetron 4 Mg/2 Ml Inj IV 4 mg Q3H PRN Administration Nausea And Vomiting Ondansetron HCl 4 mg 04/09/22 14:07 Ondansetron 4 Mg/2 Ml Inj IV ONCE PRN Nausea And Vomiting Sodium Chloride 10 ml 04/08/22 22:00 04/08/22 22:00 Sodium Chloride 0.9% 10 Ml Flush Syringe IV 10 ml BID OMA Administration Sodium Chloride 10 ml 04/08/22 21:47 Sodium Chloride 0.9% 10 Ml Flush Syringe IV PRN PRN LINE FLUSH
[2022-04-09] MEDS ORDERED: SODIUM CHLORIDE 0.9% IRR 1,000 ML BOTTLE IR ONE (15:04)
[2022-04-09] MEDS ORDERED: GLYCOPYRROLATE 0.4 MG/2 ML INJ ONE (15:13)
[2022-04-09] MEDS ORDERED: ROCURONIUM 50 MG/5 ML INJ IV ONE (15:13)
[2022-04-09] MEDS ORDERED: NEOSTIGMINE 10MG/10 ML INJ MDV ONE (15:13)
[2022-04-09] MEDS ORDERED: ONDANSETRON 4 MG/2 ML INJ ONE (15:15)
--- NOTE | 2022-04-09 16:04 | Procedure Note ---
Date of procedure: 04/09/22 Pre-op diagnosis: Acute appendicitis Post-op diagnosis: same Procedure: Laparoscopic appendectomy Description of procedure: Pt was placed supine on the OR table. GETA was administered. Abdomen was prepped and draped. Proposed trocar sites were infiltrated with 8 ml of 0.5% Marcaine with epinephrine. A small, infraumbilical incision was made and the peritoneal cavity carefully entered. A 10 Robert port was inserted into the peritoneal cavity and pneumoperitoneum established. Two 5 mm ports were inserted in the suprapubic space and lateral LLQ under direct vision. Pt was placed left side and head down. The appendix was identified and was mildly inflamed. Mesoappendix was divided with a Ligasure. Base of the appendix was clamped and amputated with an endo-RIZWANA stapler. Appendix was placed in an endobag and the endobag removed via the in fraumbilical fascial defect. Robert port was re-inserted. The cecal staple line was inspected and this was intact and hemostatic. The 2 five mm ports were removed. No bleeding was identified from the port entry sites under low pressure. The Robert port was removed and the pneumoperitoneum released. The infraumbilical fascial defect was closed with two interrupted sutures of 0- Vicryl. Skin incisions were closed with philippe. Incisions were dressed with sterile 4 X 4's and silk tape. Procedure was well tolerated. Pt was extubated in the OR and was taken to PACU in stable condition. Findings: Minimally inflamed appendix. Anesthesia: GETA Surgeon: PEDRO SALVADOR Estimated blood loss: minimal Pathology: list (Appendix) Specimen disposition: to lab Condition: stable Disposition: PACU
--- NOTE | 2022-04-09 16:40 | Post Anesthesia Evaluation ---
- Post Anesthesia Evaluation Patient Participated: Yes Airway Patent: Yes Stable Respiratory Function: Yes Nausea/Vomiting: No Temp > 96.8F: Yes Pain Manageable: Yes Adequeate Hydration: Yes Anesthesia Complications: No
[2022-04-10] MEDS: PIPERACIL/TAZOBACTA 4.5/NS 100 4.5 GM/100 ML VIAL IV SCH (01:27)
[2022-04-10 07:05] VITALS: BP 152/96
--- NOTE | 2022-04-10 11:42 | Discharge Summary ---
Providers - Providers Date of Admission: 04/08/22 21:47 Date of discharge: 04/10/22 Attending physician: LIU LAYTON MD 04/08/22 17:07 Consult to Physician [CONS] Stat Comment: Consulting Provider: PEDRO SALVADOR Physician Instructions: Reason For Exam: Acute appendicitis Primary care physician: CAN ROE MD Hospitalization Reason for admission: Acute appendicitis Condition: Stable Hospital course: Patient is a 52-year-old male no significant past medical history who reported w ith right lower quadrant pain, nausea and vomiting x2 days. CT of the abdomen and pelvis showed findings suggestive of acute appendicitis. General surgery was consulted and laparoscopic cholecystectomy was performed on 04/09. The patient left AMA postoperatively. Disposition: LEFT AGAINST MEDICAL ADVICE Final Discharge Diagnosis (Prints w/discharge instructions): Acute appendicitis. volume depletion Time spent for discharge: 20 minutes Core Measure Documentation - Palliative Care Palliative Care/ Comfort Measures: Not Applicable - Core Measures Any of the following diagnoses?: none Exam - Constitutional Vitals: Temp Pulse Resp BP Pulse Ox 98.9 F 43 L 18 152/96 94 04/10/22 04:25 04/10/22 04:25 04/10/22 04:25 04/10/22 04:25 04/10/22 04:25 Plan Follow up with: CAN ROE MD [Primary Care Provider] - 7 Days
== END 2022-04-10 11:30 | disposition left against medical advice (07) | DRG 343 ==
LOC: ED 14:08 → 3A 21:47
PROVIDERS: ADMIT Internal Medicine; ATTEND Student in an Organized Health Care Education/Training Program
PROC: 0DTJ4ZZ Resection of Appendix, Percutaneous Endoscopic Approach (ICD-10-PCS; principal; 2022-04-09)
DX: K35.80 Unspecified acute appendicitis (principal); F17.200 Nicotine dependence, unspecified, uncomplicated; E86.0 Dehydration; E86.9 Volume depletion, unspecified
CPT/HCPCS: 36415; 74177; 80048; 80053; 80076; 81001; 83690; 85025; 87040; 88304; G0378; J1815; J3490; C9113; J1170; J1200; J1644; J2270; J2405; J2543; J2704; J2710; J2765; J7030; J7042; Q9967

== ENCOUNTER 2022-04-17 10:15 | Emergency (ER) | payer MEDICAID ==
[2022-04-17 10:57] VITALS: BP 113/74
--- NOTE | 2022-04-17 12:27 | Emergency Department Report ---
Suture/Staple Removal - HPI Chief Complaint: Laceration/Recheck/Suture Stated Complaint: STITCJES REMOVAL Time Seen by Provider: 04/17/22 11:55 When Sutures or [place] Placed: 5-7 Days Ago Wound Location: abdomen ED Review of Systems ROS: Stated complaint: STITCJES REMOVAL Other details as noted in HPI Comment: All other systems reviewed and negative ED Past Medical Hx - Past Medical History Hx Arthritis: Yes - Surgical History Hx Appendectomy: Yes - Social History Smoking Status: Never Smoker - Medications Home Medications: Home Medications Medication Instructions Recorded Confirmed Last Taken Type Dicyclomine [Bentyl] 20 mg PO QID #12 tablet 01/15/19 04/09/22 Unknown Rx Ondansetron [Zofran Odt] 4 mg PO Q8HR PRN #10 tab.rapdis 01/15/19 04/09/22 U nknown Rx Ibuprofen [Motrin] 800 mg PO Q8HR #30 tablet 04/17/22 Unknown Rx cephALEXin [Keflex] 500 mg PO Q12HR #10 cap 04/17/22 Unknown Rx Suture Removal Exam - Exam General: Vital signs noted. No distress. Alert and acting appropriately. Wound: No Pathologic Erythema, No Tenderness, No Drainage, No Pus, No Wound Dehiscence Other Systems: All other systems reviewed and are unremarkable. 5 philippe noticed on the abdomen 3 at the umbilicus and 2 on the right and left lower quadrant of the abdomen. ED Course Vital Signs 04/17/22 10:53 Temperature 97.9 F Pulse Rate 69 Respiratory 14 Rate Blood Pressure 113/74 O2 Sat by Pulse 98 Oximetry ED Recheck MDM - Medical Decision Making 52-year-old male presents to ED for his staple removal status post appendectomy that was done here in the hospital 1 week ago status post acute appendicitis by general surgeon Dr. Pedro Travis.. Patient denies any problems today simply wanting staple removal as he missed his appointment to have it removed. Surgery was performed by Dr. Travis general surgeon here at [facility]. Critical care attestation.: If time is entered above; I have spent that time in minutes in the direct care of this critically ill patient, excluding procedure time. ED Disposition Clinical Impression: Removal of staple Disposition: 01 HOME / SELF CARE / HOMELESS Is pt being admited?: No Does the pt Need Aspirin: No Condition: Stable Instructions: Wound Closure Removal, Care After Additional Instructions: Make sure to follow up with the primary care physician as discussed. Take all your medications as you've been prescribed. If you have any worsening symptoms or develop new symptoms please return to ED immediately. Prescriptions: cephALEXin [Keflex] 500 mg PO Q12HR #10 cap Ibuprofen [Motrin] 800 mg PO Q8HR #30 tablet Referrals: WILDER BARRETO MD [Primary Care Provider] - 3-5 Days PEDRO TRAVIS MD [Staff Physician] - 3-5 Days Forms: Work/School Release Form(ED) Time of Disposition: 12:27
== END 2022-04-17 12:40 | disposition home or self-care (01) ==
LOC: ED 10:15
DX: S31.119D Laceration without foreign body of abdominal wall, unspecified quadrant without penetration into peritoneal cavity, subsequent encounter (principal); X58.XXXD Exposure to other specified factors, subsequent encounter
CPT/HCPCS: 99282